=== PATIENT | female | born 1950 | race Caucasian/White ===

== ENCOUNTER 2021-04-06 12:36 | Inpatient (IN) | payer OTHER ==
[~2021-04-06] VITALS: Ht 160 cm; Wt 116.3 kg
[2021-04-06 14:30] LABS: RED BLOOD COUNT 4.9 M/UL (4.00-5.10); WHITE BLOOD COUNT 7.7 K/UL (4.5-11.0)
[2021-04-06 15:02] LABS: BUN/CREATININE RATIO 26 (0-10)
[2021-04-06] MEDS ORDERED: LOPRESSOR 50 MG50 MG PO (16:15)
[2021-04-06] MEDS ORDERED: PAXIL20 MG PO (16:15)
[2021-04-06] MEDS ORDERED: ZESTRIL10 MG PO (16:15)
[2021-04-07 03:43] LABS: BUN/CREATININE RATIO 25 (0-10)
[2021-04-07 03:47] LABS: HEMOGLOBIN 14.5 gm/dl (12.3-15.3); RED BLOOD COUNT 4.7 M/UL (4.00-5.10)
[2021-04-07 04:00] LABS: WHITE BLOOD COUNT 12.3 K/UL (4.5-11.0)
[2021-04-08 03:55] LABS: HEMOGLOBIN 13.4 gm/dl (12.3-15.3); RED BLOOD COUNT 4.33 M/UL (4.00-5.10); WHITE BLOOD COUNT 9.7 K/UL (4.5-11.0)
[2021-04-08 04:21] LABS: BUN/CREATININE RATIO 26 (0-10)
[2021-04-09 03:14] LABS: HEMOGLOBIN 14.4 gm/dl (12.3-15.3); RED BLOOD COUNT 4.52 M/UL (4.00-5.10)
[2021-04-09 03:18] LABS: WHITE BLOOD COUNT 13.2 K/UL (4.5-11.0)
[2021-04-09 03:41] LABS: BUN/CREATININE RATIO 33 (0-10)
[2021-04-10 03:48] LABS: HEMOGLOBIN 14.2 gm/dl (12.3-15.3); RED BLOOD COUNT 4.42 M/UL (4.00-5.10); WHITE BLOOD COUNT 13.5 K/UL (4.5-11.0)
[2021-04-10 04:13] LABS: BUN/CREATININE RATIO 29 (0-10)
[2021-04-11 03:43] LABS: HEMOGLOBIN 14.3 gm/dl (12.3-15.3); RED BLOOD COUNT 4.53 M/UL (4.00-5.10); WHITE BLOOD COUNT 16.2 K/UL (4.5-11.0)
[2021-04-11 04:02] LABS: BUN/CREATININE RATIO 22 (0-10)
[2021-04-12 03:42] LABS: HEMOGLOBIN 15.3 gm/dl (12.3-15.3); RED BLOOD COUNT 4.82 M/UL (4.00-5.10)
[2021-04-12 04:13] LABS: BUN/CREATININE RATIO 35 (0-10)
[2021-04-13 03:34] LABS: HEMOGLOBIN 16.3 gm/dl (12.3-15.3); RED BLOOD COUNT 5.05 M/UL (4.00-5.10); WHITE BLOOD COUNT 18.7 K/UL (4.5-11.0)
[2021-04-13 04:10] LABS: BUN/CREATININE RATIO 40 (0-10)
[2021-04-14 02:59] LABS: HEMOGLOBIN 16.1 gm/dl (12.3-15.3); RED BLOOD COUNT 5.03 M/UL (4.00-5.10); WHITE BLOOD COUNT 19.5 K/UL (4.5-11.0)
[2021-04-14 03:27] LABS: BUN/CREATININE RATIO 49 (0-10)
--- NOTE | 2021-04-14 10:20 | NUR ---
1010 - RECEIVED PT FROM PCU VIA BED ON BIPAP. PT'S O2 SAT 87% ON BIPAP @ 100%. PT ALERT AND ORIENTED. UNDERSTANDS THAT SHE IS HERE TO BE INTUBATED. ETOMIDATE AND SUCCINYLCHOLINE GIVEN PER NEW ORDERS FOR SEDATION. PT INTUBATED WITH A 7.5 ETT SECURED 21 @ THE LIP. O2 SAT 69% PRIOR TO INTUBATION, AFTER INTUBATION 85%. VENT CHANGES BEING MADE TO INCREASE O2 SAT.
--- NOTE | 2021-04-14 11:50 | NUR ---
1115 - CENTRAL LINE PLACED PER DR ESQUIVEL. MEDS GIVEN PER ORDERS
--- NOTE | 2021-04-14 12:09 | NUR ---
1025 called report to icu nurse pt not able to keep 02 levels at 90 or above. pulmonary notified and orders given to move to icu. pt transfered to room 2107. Spoke with pt niece who is emergency contact. told niece pt was not breathing well on bipap and may have to be intubabted. Family wanted to speak to icu nurse was transfered to icu department.
--- NOTE | 2021-04-14 15:29 | NUR ---
[address] BA
[2021-04-15 07:44] LABS: HEMOGLOBIN 17.1 gm/dl (12.3-15.3); RED BLOOD COUNT 5.27 M/UL (4.00-5.10)
[2021-04-15 07:49] LABS: WHITE BLOOD COUNT 24.8 K/UL (4.5-11.0)
[2021-04-16 05:34] LABS: RED BLOOD COUNT 4.88 M/UL (4.00-5.10); WHITE BLOOD COUNT 25.1 K/UL (4.5-11.0)
[2021-04-17 05:38] LABS: HEMOGLOBIN 13.3 gm/dl (12.3-15.3); RED BLOOD COUNT 4.3 M/UL (4.00-5.10); WHITE BLOOD COUNT 23.4 K/UL (4.5-11.0)
[2021-04-18 07:15] LABS: HEMOGLOBIN 13.3 gm/dl (12.3-15.3); RED BLOOD COUNT 4.25 M/UL (4.00-5.10); WHITE BLOOD COUNT 15.5 K/UL (4.5-11.0)
[2021-04-19 09:52] LABS: HEMOGLOBIN 12.8 gm/dl (12.3-15.3); RED BLOOD COUNT 4.15 M/UL (4.00-5.10); WHITE BLOOD COUNT 17.7 K/UL (4.5-11.0)
[2021-04-20 04:29] LABS: HEMOGLOBIN 12.5 gm/dl (12.3-15.3); RED BLOOD COUNT 3.93 M/UL (4.00-5.10); WHITE BLOOD COUNT 13.5 K/UL (4.5-11.0)
[2021-04-20 04:47] LABS: BUN/CREATININE RATIO 61 (0-10)
[2021-04-20 13:10] LABS: BUN/CREATININE RATIO 60 (0-10)
[2021-04-22 07:37] LABS: HEMOGLOBIN 11.9 gm/dl (12.3-15.3); RED BLOOD COUNT 3.89 M/UL (4.00-5.10)
[2021-04-22 07:38] LABS: WHITE BLOOD COUNT 18.5 K/UL (4.5-11.0)
[2021-04-23 05:47] LABS: HEMOGLOBIN 11.7 gm/dl (12.3-15.3); RED BLOOD COUNT 3.66 M/UL (4.00-5.10); WHITE BLOOD COUNT 20.6 K/UL (4.5-11.0)
[2021-04-23 06:08] LABS: BUN/CREATININE RATIO 84 (0-10)
[2021-04-24 06:04] LABS: BUN/CREATININE RATIO 80 (0-10)
[2021-04-24 06:06] LABS: HEMOGLOBIN 11.7 gm/dl (12.3-15.3); RED BLOOD COUNT 3.63 M/UL (4.00-5.10); WHITE BLOOD COUNT 26.3 K/UL (4.5-11.0)
[2021-04-25 06:51] LABS: HEMOGLOBIN 11.8 gm/dl (12.3-15.3); RED BLOOD COUNT 3.76 M/UL (4.00-5.10)
[2021-04-25 07:09] LABS: BUN/CREATININE RATIO 66 (0-10)
[2021-04-26 05:41] LABS: HEMOGLOBIN 10.7 gm/dl (12.3-15.3); RED BLOOD COUNT 3.35 M/UL (4.00-5.10); WHITE BLOOD COUNT 25.9 K/UL (4.5-11.0)
[2021-04-26 08:26] LABS: BUN/CREATININE RATIO 51 (0-10)
[2021-04-27 06:26] LABS: RED BLOOD COUNT 3.52 M/UL (4.00-5.10); WHITE BLOOD COUNT 21.9 K/UL (4.5-11.0)
[2021-04-27 06:31] LABS: BUN/CREATININE RATIO 53 (0-10)
[2021-04-28 05:37] LABS: BUN/CREATININE RATIO 52 (0-10)
[2021-04-29 09:42] LABS: HEMOGLOBIN 12.1 gm/dl (12.3-15.3); RED BLOOD COUNT 3.82 M/UL (4.00-5.10); WHITE BLOOD COUNT 22.9 K/UL (4.5-11.0)
[2021-04-29 10:46] LABS: BUN/CREATININE RATIO 43 (0-10)
[2021-04-30 07:08] LABS: BUN/CREATININE RATIO 42 (0-10)
== END 2021-04-30 14:08 | disposition expired | DRG 870 ==
LOC: ER1 12:36 → PROG CARE 15:44 → CDU 15:44 → CCU 15:44 → PROG CARE 23:27 → CCU 04-14 10:21
PROVIDERS: Emergency Medicine; Internal Medicine; Internal Medicine Nephrology; Internal Medicine Pulmonary Disease; Surgery; ADMIT Internal Medicine
PROC: 8E0ZXY6 Isolation (ICD-10-PCS; principal; 2021-04-06)
PROC: XW033E5 Introduction of Remdesivir Anti-infective into Peripheral Vein, Percutaneous Approach, New Technology Group 5 (ICD-10-PCS; 2021-04-06)
PROC: 3E0333Z Introduction of Anti-inflammatory into Peripheral Vein, Percutaneous Approach (ICD-10-PCS; 2021-04-06)
PROC: 5A09557 Assistance with Respiratory Ventilation, Greater than 96 Consecutive Hours, Continuous Positive Airway Pressure (ICD-10-PCS; 2021-04-06)
PROC: XW033H5 Introduction of Tocilizumab into Peripheral Vein, Percutaneous Approach, New Technology Group 5 (ICD-10-PCS; 2021-04-07)
PROC: 5A1955Z Respiratory Ventilation, Greater than 96 Consecutive Hours (ICD-10-PCS; 2021-04-15)
PROC: 0BH17EZ Insertion of Endotracheal Airway into Trachea, Via Natural or Artificial Opening (ICD-10-PCS; 2021-04-15)
PROC: 3E033XZ Introduction of Vasopressor into Peripheral Vein, Percutaneous Approach (ICD-10-PCS; 2021-04-16)
PROC: 0DH67UZ Insertion of Feeding Device into Stomach, Via Natural or Artificial Opening (ICD-10-PCS; 2021-04-16)
DX: A41.89 Other specified sepsis (principal); U07.1 COVID-19; J12.82 Pneumonia due to coronavirus disease 2019; J15.9 Unspecified bacterial pneumonia; J80 Acute respiratory distress syndrome; R65.21 Severe sepsis with septic shock; G93.41 Metabolic encephalopathy; E87.1 Hypo-osmolality and hyponatremia; N17.9 Acute kidney failure, unspecified; E87.2 Acidosis; E87.3 Alkalosis; K56.7 Ileus, unspecified; E27.40 Unspecified adrenocortical insufficiency; Z66 Do not resuscitate; R74.01 Elevation of levels of liver transaminase levels; I25.10 Atherosclerotic heart disease of native coronary artery without angina pectoris; E66.9 Obesity, unspecified; I10 Essential (primary) hypertension; E87.5 Hyperkalemia; F41.9 Anxiety disorder, unspecified; L89.816 Pressure-induced deep tissue damage of head; R94.5 Abnormal results of liver function studies; Z90.49 Acquired absence of other specified parts of digestive tract; Z79.899 Other long term (current) drug therapy; Z82.49 Family history of ischemic heart disease and other diseases of the circulatory system; Z83.3 Family history of diabetes mellitus; Z79.02 Long term (current) use of antithrombotics/antiplatelets; Z51.5 Encounter for palliative care; Z79.4 Long term (current) use of insulin; Z79.82 Long term (current) use of aspirin
CPT/HCPCS: 31500; 36415; 36600; 71045; 71275; 80048; 80053; 80202; 82533; 82550; 82553; 82728; 82803; 82962; 83605; 83615; 83735; 83874; 83880; 84100; 84132; 84439; 84443; 84484; 85025; 85027; 85379; 85384; 85652; 86140; 87040; 87070; 87077; 87086; 87186; 87205; 93005; 94003; 94640; 94660; 94664; 94760; 99285; A6212; C1751; C9113; J0330; J0360; J0456; J0696; J1100; J1650; J1940; J2543; J2704; J3010; J3370; J7030; J7040; J7042; J7070; Q0249; Q9967; U0002